=== PATIENT | female | born 1940 | race African-American/Black ===

== ENCOUNTER 2023-01-19 17:05 | Inpatient (IN) | payer OTHER, MEDICAID ==
[~2023-01-19] VITALS: Ht 162.6 cm; Wt 68.0 kg
[~2023-01-19 17:05] MED LIST: DIAZ2TAB3 MT; HYDR-4001 MT; LOSA50TA41 PO; OMEP10CA5 MT
[2023-01-19 22:58] LABS: CLARITY URINE CLEAR (CLEAR); COLOR URINE YELLOW (YELLOW); KETONES URINE NEGATIVE (NEGATIVE); LEUKOCYTE ESTERASE URINE NEGATIVE (NEGATIVE); NITRITE URINE NEGATIVE (NEGATIVE); OCCULT BLOOD URINE NEGATIVE (NEGATIVE); PROTEIN URINE NEGATIVE (NEGATIVE); SPECIFIC GRAVITY URINE 1.011 (1.005-1.030); UROBILINOGEN URINE 0.2 E.U./dL (0.2-1.0)
[2023-01-19 23:46] LABS: BASOPHILS % 0.7 % (0.0-2.0); EOSINOPHILS % 0.7 % (0.0-5.0); HEMATOCRIT. 35.4 % (36.0-48.0); HEMOGLOBIN. 12.1 g/dL (12.0-16.0); LYMPHOCYTES % 29.6 % (20.0-50.0); MEAN CORPUSCULAR HEMOGLOBIN 29.5 pg (28.0-32.0); MEAN CORPUSCULAR VOLUME 85.8 fL (81.0-99.0); MEAN PLATELET VOLUME 7.3 fl (7.4-10.4); MONOCYTES % 14.9 % (2.0-8.0); NEUTROPHILS % 54.1 % (40.0-76.0); PLATELET 243 x1000/uL (130-400); RED BLOOD CELL COUNT 4.12 mill/uL (4.2-5.4); RED CELL DISTRIBUTION WIDTH 13.3 % (11.6-14.6)
[2023-01-20 00:09] LABS: CHLORIDE 94 mEq/L (98-107)
[2023-01-20] MEDS ORDERED: ACETAMINOPHEN 325MG TABLET PO ONE (00:30)
[2023-01-20] MEDS ORDERED: MORPHINE SULFATE 4 MG/ML CPJ (NOT FOR IM USE) IV ONE (00:45)
[2023-01-20] MEDS ORDERED: CLONIDINE 0.1MG TABLET PO PRN (02:30)
[2023-01-20] MEDS ORDERED: SENNOSIDES/DOCUSATE SOD 8.6/50MG TABLET PO PRN (02:30)
[2023-01-20] MEDS ORDERED: NA PHOS,M-B/NA PHOS,DI-BA ENEMA 118ML PR PRN (02:30)
[2023-01-20] MEDS ORDERED: ACETAMINOPHEN 325MG TABLET PO PRN ×2 (02:30)
[2023-01-20] MEDS ORDERED: BISACODYL 5MG TABLET PO NR (02:30)
[2023-01-20] MEDS ORDERED: IPRATROPIUM/ALBUTEROL 0.5-3(2.5)MG/3ML NEB NEB PRN (02:30)
[2023-01-20 05:03] LABS: BASOPHILS % 0.5 % (0.0-2.0); EOSINOPHILS % 0.8 % (0.0-5.0); HEMATOCRIT. 34.2 % (36.0-48.0); HEMOGLOBIN. 11.7 g/dL (12.0-16.0); LYMPHOCYTES % 23.3 % (20.0-50.0); MEAN CORPUSCULAR HEMOGLOBIN 29.6 pg (28.0-32.0); MEAN CORPUSCULAR VOLUME 86.4 fL (81.0-99.0); MEAN PLATELET VOLUME 7.4 fl (7.4-10.4); MONOCYTES % 14.7 % (2.0-8.0); NEUTROPHILS % 60.7 % (40.0-76.0); PLATELET 220 x1000/uL (130-400); RED BLOOD CELL COUNT 3.96 mill/uL (4.2-5.4); RED CELL DISTRIBUTION WIDTH 13.4 % (11.6-14.6)
[2023-01-20 05:25] LABS: CHLORIDE 97 mEq/L (98-107)
[2023-01-20 05:44] LABS: HDL CHOLESTEROL 85 mg/dL (40-59); LDL CHOLESTEROL 56 mg/dL (5-100); T4 FREE 1.46 ng/dL (0.76-1.46)
[2023-01-20] MEDS ORDERED: KCL 20MEQ/100ML PREMIX 100 ML IV NR (05:45)
[2023-01-20 06:08] LABS: TOTAL IRON BINDING CAPACITY 343 ug/dL (250-450)
[2023-01-20] MEDS ORDERED: MORPHINE SULFATE 4 MG/ML CPJ (NOT FOR IM USE) IV NR (08:00)
[2023-01-20] MEDS: BLOOD SUGAR DIAGNOSTIC STRIP TEST SCH ×3 (09:00→20:53)
[2023-01-20] MEDS: ENOXAPARIN 30MG/0.3ML SYR SUBCUT SCH (09:00)
[2023-01-20] MEDS: LOSARTAN POTASSIUM 50 MG TABLET PO SCH (09:00)
[2023-01-20] MEDS: PANTOPRAZOLE SODIUM 40 MG/VIAL IV SCH (09:00)
[2023-01-20 09:42] LABS: VITAMIN B12 SERUM 551 pg/mL (211-911)
[2023-01-20 10:26] LABS: *AMPHETAMINES SCREEN URINE NEGATIVE (NEGATIVE); *BARBITURATES SCREEN URINE NEGATIVE (NEGATIVE); *BENZODIAZEPINES SCREEN URINE PRESUMTIVE POSITIVE (NEGATIVE); *COCAINE SCREEN URINE NEGATIVE (NEGATIVE); CANNABINOID URINE SCREEN NEGATIVE (NEGATIVE); METHADONE URINE SCREEN NEGATIVE (NEGATIVE); OPIATES URINE SCREEN PRESUMTIVE POSITIVE (NEGATIVE); PHENCYCLIDINE URINE SCREEN NEGATIVE (NEGATIVE)
[2023-01-20 11:53] LABS: FERRITIN 50 ng/mL (10-291)
[2023-01-20] MEDS: SENNOSIDES/DOCUSATE SOD 8.6/50MG TABLET PO SCH ×2 (15:28→17:00)
[2023-01-20] MEDS: HYDROCODONE/ACETAMINOPHEN 5/325MG TABLET PO PRN (15:36)
[2023-01-20 15:37] VITALS: BP 140/70
[2023-01-20] MEDS ORDERED: IPRATROPIUM BROMIDE (0.02%) 0.5MG/2.5ML NEB HHN PRN (15:45)
[2023-01-20] MEDS ORDERED: SORBITOL 70% SOLN 30ML PO NR (15:45)
[2023-01-20] MEDS ORDERED: ALBUTEROL (0.083%) 2.5MG/3ML NEB HHN PRN (15:45)
[2023-01-20] MEDS ORDERED: NALOXONE HCL 0.4MG/ML VIAL IV PRN (19:15)
[2023-01-20 20:00] VITALS: BP 123/57
[2023-01-21] VITALS: BP 149/65
[2023-01-21] MEDS: HYDROCODONE/ACETAMINOPHEN 5/325MG TABLET PO PRN ×3 (02:18→21:35)
[2023-01-21 04:00] VITALS: BP 137/58
[2023-01-21 07:15] LABS: HEMATOCRIT. 33.1 % (36.0-48.0); HEMOGLOBIN. 11.6 g/dL (12.0-16.0); MEAN CORPUSCULAR HEMOGLOBIN 30.5 pg (28.0-32.0); MEAN CORPUSCULAR VOLUME 87.2 fL (81.0-99.0); MEAN PLATELET VOLUME 7.7 fl (7.4-10.4); PLATELET 244 x1000/uL (130-400); RED CELL DISTRIBUTION WIDTH 13.4 % (11.6-14.6)
[2023-01-21] MEDS: BLOOD SUGAR DIAGNOSTIC STRIP TEST SCH ×4 (07:20→21:36)
[2023-01-21 07:55] LABS: CHLORIDE 100 mEq/L (98-107)
[2023-01-21 07:57] LABS: AMYLASE 116 IU/L (25-115)
[2023-01-21 08:00] VITALS: BP 117/64
[2023-01-21] MEDS: ENOXAPARIN 30MG/0.3ML SYR SUBCUT SCH (09:00)
[2023-01-21] MEDS: LOSARTAN POTASSIUM 50 MG TABLET PO SCH (10:36)
[2023-01-21] MEDS: SENNOSIDES/DOCUSATE SOD 8.6/50MG TABLET PO SCH ×2 (10:36→18:45)
[2023-01-21] MEDS: PANTOPRAZOLE SODIUM 40 MG/VIAL IV SCH (11:23)
[2023-01-21 12:00] VITALS: BP 156/81
[2023-01-21 13:46] LABS: PLATELET ESTIMATE NORMAL
[2023-01-21 16:00] VITALS: BP 157/91
[2023-01-21 20:00] VITALS: BP 102/60
[2023-01-21] MEDS: DEXTROSE 50% WATER 50ML SYRINGE IV PRN (21:55)
[2023-01-22] VITALS: BP 139/62
[2023-01-22] MEDS: HYDROCODONE/ACETAMINOPHEN 5/325MG TABLET PO PRN ×2 (03:47→14:10)
[2023-01-22 04:00] VITALS: BP 149/66
[2023-01-22] MEDS: DEXTROSE 50% WATER 50ML SYRINGE IV PRN ×3 (05:49→12:01)
[2023-01-22] MEDS: BLOOD SUGAR DIAGNOSTIC STRIP TEST SCH ×2 (07:20→12:20)
[2023-01-22 08:00] VITALS: BP 151/68
[2023-01-22] MEDS: LOSARTAN POTASSIUM 50 MG TABLET PO SCH (08:38)
[2023-01-22] MEDS: SENNOSIDES/DOCUSATE SOD 8.6/50MG TABLET PO SCH (08:40)
[2023-01-22] MEDS: ENOXAPARIN 30MG/0.3ML SYR SUBCUT SCH (08:41)
[2023-01-22 12:00] VITALS: BP 132/78
[2023-01-22 16:00] VITALS: BP 149/71
[2023-01-22 20:30] LABS: FOLIC ACID (FOLATE) SERUM > 20.00 ng/mL (>5.38)
== END 2023-01-22 17:03 | disposition home or self-care (01) | DRG 392 ==
LOC: ER 17:05 → 6EST 01-20 01:40 → ENRESERV 01-20 10:49
PROVIDERS: ADMIT Internal Medicine; ATTEND Internal Medicine
DX: K59.00 Constipation, unspecified (principal); K40.90 Unilateral inguinal hernia, without obstruction or gangrene, not specified as recurrent; D64.9 Anemia, unspecified; D72.819 Decreased white blood cell count, unspecified; I11.9 Hypertensive heart disease without heart failure; E16.2 Hypoglycemia, unspecified; G89.29 Other chronic pain; M19.90 Unspecified osteoarthritis, unspecified site; K44.9 Diaphragmatic hernia without obstruction or gangrene; N99.3 Prolapse of vaginal vault after hysterectomy; Z96.643 Presence of artificial hip joint, bilateral; Z79.899 Other long term (current) drug therapy; Z90.49 Acquired absence of other specified parts of digestive tract
CPT/HCPCS: 36415; 74176; 76700; 80048; 80053; 80061; 80305; 81003; 82150; 82378; 82607; 82728; 82746; 82962; 83036; 83540; 83550; 83615; 83880; 84439; 84443; 84484; 85025; 86301; 97162; 97166; 99285; C9113; J1650; J2270; J3480

== ENCOUNTER 2023-05-01 11:11 | Emergency (ER) | payer OTHER, MEDICAID ==
[~2023-05-01] VITALS: Ht 165.1 cm; Wt 55.0 kg
[~2023-05-01 11:11] MED LIST changes: +SULF1TAB44 PO
[2023-05-01 11:12] VITALS: O2SAT 100
[2023-05-01 12:05] LABS: EOSINOPHILS % 1.4 % (0.0-5.0); HEMATOCRIT. 31.6 % (36.0-48.0); HEMOGLOBIN. 10.8 g/dL (12.0-16.0); LYMPHOCYTES % 18.5 % (20.0-50.0); MEAN CORPUSCULAR HEMOGLOBIN 30.2 pg (28.0-32.0); MEAN CORPUSCULAR VOLUME 88.7 fL (81.0-99.0); MONOCYTES % 6.7 % (2.0-8.0); NEUTROPHILS % 72.4 % (40.0-76.0); PLATELET 333 x1000/uL (130-400); RED BLOOD CELL COUNT 3.56 mill/uL (4.2-5.4); RED CELL DISTRIBUTION WIDTH 13.2 % (11.6-14.6)
[2023-05-01 12:16] LABS: CHLORIDE 93 mEq/L (98-107)
[2023-05-01 15:10] VITALS: BP 128/60; PULSE 18; RESP 12
[2023-05-01] MEDS ORDERED: ACETAMINOPHEN 325MG TABLET PO ONE (15:15)
[2023-05-01 15:37] VITALS: TEMP 98.1
== END 2023-05-01 16:08 | disposition home or self-care (01) ==
LOC: ER 11:11
DX: I83.009 Varicose veins of unspecified lower extremity with ulcer of unspecified site (principal); E87.6 Hypokalemia
CPT/HCPCS: 36415; 80053; 83605; 85025; 99283

== ENCOUNTER 2023-07-12 19:41 | Emergency (ER) | payer OTHER, MEDICAID ==
[~2023-07-12] VITALS: Ht 160 cm; Wt 50.0 kg
[2023-07-12 19:43] VITALS: O2SAT 100
[2023-07-12 20:06] VITALS: TEMP 98.4
[2023-07-12 20:57] LABS: BASOPHILS % 0.8 % (0.0-2.0); EOSINOPHILS % 5.2 % (0.0-5.0); HEMATOCRIT. 31.3 % (36.0-48.0); HEMOGLOBIN. 10.2 g/dL (12.0-16.0); LYMPHOCYTES % 33.6 % (20.0-50.0); MEAN CORPUSCULAR HEMOGLOBIN 28.8 pg (28.0-32.0); MEAN CORPUSCULAR HGB CONC 32.6 g/dL (31.0-37.0); MEAN CORPUSCULAR VOLUME 88.2 fL (81.0-99.0); MEAN PLATELET VOLUME 7.1 fl (7.4-10.4); MONOCYTES % 15.8 % (2.0-8.0); NEUTROPHILS % 44.6 % (40.0-76.0); PLATELET 217 x1000/uL (130-400); RED BLOOD CELL COUNT 3.55 mill/uL (4.2-5.4); RED CELL DISTRIBUTION WIDTH 13.2 % (11.6-14.6); WHITE BLOOD COUNT 2.9 x1000/uL (4.5-11.0)
[2023-07-12] MEDS ORDERED: MORPHINE SULFATE 4 MG/ML CPJ (NOT FOR IM USE) IV NR (20:57)
[2023-07-12] MEDS ORDERED: KETOROLAC 30MG/ML VIAL IV NR (20:57)
[2023-07-12 20:58] LABS: DIFFERENTIAL COMMENT 1
[2023-07-12 21:16] LABS: CHLORIDE 98 mEq/L (98-107); INDEX HEMOLYSI 1 (1-3); INDEX ICTERIC 1 (1-4); INDEX LIPEMIC 1 (1-3); SODIUM 130 mEq/L (136-145)
[2023-07-12 21:30] LABS: ALANINE AMINOTRANSFERASE 14 IU/L (13-61); ALBUMIN 3.4 g/dL (3.4-5.0); ASPARTATE AMINOTRANSFERASE 19 IU/L (15-37); BILIRUBIN TOTAL 0.4 mg/dL (0.1-1.0); CALCIUM 8.6 mg/dL (8.5-10.1); CARBON DIOXIDE 26 mEq/L (21-32); CREATININE 0.7 mg/dL (0.6-1.3); GLUCOSE 85 mg/dL (70-105); PROTEIN TOTAL 7.6 g/dL (6.0-8.3); TROPONIN I HIGH SENSITIVITY 7 ng/L (<54); UREA NITROGEN BLOOD 12 mg/dL (7-21)
[2023-07-12] MEDS ORDERED: POTASSIUM CHLORIDE 20MEQ TABLET SR PO NR (21:45)
[2023-07-12] MEDS ORDERED: LACTULOSE 20G/30ML UDC PO NR (21:45)
[2023-07-12 21:47] LABS: CLARITY URINE CLEAR (CLEAR); COLOR URINE YELLOW (YELLOW); GLUCOSE URINE NEGATIVE (NEGATIVE); KETONES URINE NEGATIVE (NEGATIVE); LEUKOCYTE ESTERASE URINE 1+ (NEGATIVE); NITRITE URINE NEGATIVE (NEGATIVE); OCCULT BLOOD URINE NEGATIVE (NEGATIVE); PROTEIN URINE NEGATIVE (NEGATIVE); SPECIFIC GRAVITY URINE 1.011 (1.005-1.030); UROBILINOGEN URINE 0.2 E.U./dL (0.2-1.0)
[2023-07-12 21:50] LABS: RBC URINE 0-2 /hpf (0-2); SQUAMOUS EPITHELIAL CELL URINE 1+ /lpf (RARE/1+); YEAST URINE NONE SEEN
[2023-07-12] MEDS ORDERED: POLY17PO3 MT (21:58)
[2023-07-12] MEDS ORDERED: CEPH500C2 MT (21:58)
[2023-07-12] MEDS ORDERED: CEFTRIAXONE 1GM PREMIX 50 ML IV NR (22:00)
[2023-07-12 22:05] LABS: BACTERIA URINE TRACE; WBC URINE 0-2 /hpf (0-2)
[2023-07-12 22:11] LABS: PROTHROMBIN TIME 10.3 sec (9.6-11.0)
[2023-07-12 22:25] LABS: TROPONIN I HIGH SENSITIVITY 8 ng/L (<54)
[2023-07-12] MEDS ORDERED: POTASSIUM CHLORIDE INJ 40 MEQ in DEXT 5% WATER 250 ML IV NR (22:30)
[2023-07-13] MEDS ORDERED: TOPUD MT (05:26)
[2023-07-13 09:31] VITALS: BP 136/72; PULSE 78; RESP 16
== END 2023-07-13 09:33 | disposition home or self-care (01) ==
LOC: ER 19:41 → CANBEDREQ 07-13 22:13
DX: R10.9 Unspecified abdominal pain (principal); I10 Essential (primary) hypertension
CPT/HCPCS: 99285; 74176; 96365; 96375; 80053; 81003; 83690; 85025; 85610; 84484; 36415; 93005; 96367; J0696; J1885; J3480; J2270; J7060; 96376

== ENCOUNTER 2023-09-16 04:06 | Emergency (ER) | payer OTHER, MEDICAID ==
[~2023-09-16] VITALS: Ht 165.1 cm; Wt 63.0 kg
[~2023-09-16 04:06] MED LIST changes: +CEPH500C2 MT; +POLY17PO3 MT; +TOPUD MT
[2023-09-16 04:10] VITALS: O2SAT 98
[2023-09-16 04:53] LABS: BASOPHILS % 0.4 % (0.0-2.0); HEMATOCRIT. 30.7 % (36.0-48.0); HEMOGLOBIN. 10.5 g/dL (12.0-16.0); LYMPHOCYTES % 12.7 % (20.0-50.0); MEAN CORPUSCULAR HEMOGLOBIN 29.4 pg (28.0-32.0); MEAN CORPUSCULAR HGB CONC 34.3 g/dL (31.0-37.0); MEAN CORPUSCULAR VOLUME 85.6 fL (81.0-99.0); MEAN PLATELET VOLUME 7.5 fl (7.4-10.4); MONOCYTES % 5.9 % (2.0-8.0); PLATELET 275 x1000/uL (130-400); RED BLOOD CELL COUNT 3.58 mill/uL (4.2-5.4); RED CELL DISTRIBUTION WIDTH 14.9 % (11.6-14.6); WHITE BLOOD COUNT 5.2 x1000/uL (4.5-11.0)
[2023-09-16 04:59] LABS: CHLORIDE 91 mEq/L (98-107); INDEX HEMOLYSI 1 (1-3); INDEX ICTERIC 1 (1-4); INDEX LIPEMIC 1 (1-3); SODIUM 127 mEq/L (136-145)
[2023-09-16 05:04] LABS: INR 0.9; PROTHROMBIN TIME 10.2 sec (9.6-11.0)
[2023-09-16 05:14] LABS: ALANINE AMINOTRANSFERASE 28 IU/L (13-61); ALBUMIN 3.8 g/dL (3.4-5.0); ASPARTATE AMINOTRANSFERASE 31 IU/L (15-37); BILIRUBIN TOTAL 0.4 mg/dL (0.1-1.0); CALCIUM 9.1 mg/dL (8.5-10.1); CARBON DIOXIDE 28 mEq/L (21-32); CREATININE 0.6 mg/dL (0.6-1.3); GLUCOSE 90 mg/dL (70-105); PROTEIN TOTAL 8.4 g/dL (6.0-8.3); UREA NITROGEN BLOOD 14 mg/dL (7-21)
[2023-09-16] MEDS ORDERED: ONDANSETRON HCL 4MG/2ML INJ IV STA (05:15)
[2023-09-16] MEDS ORDERED: MORPHINE SULFATE 4 MG/ML CPJ (NOT FOR IM USE) IV STA (05:15)
[2023-09-16 06:13] LABS: CLARITY URINE CLOUDY (CLEAR); COLOR URINE YELLOW (YELLOW); GLUCOSE URINE NEGATIVE (NEGATIVE); KETONES URINE NEGATIVE (NEGATIVE); LEUKOCYTE ESTERASE URINE NEGATIVE (NEGATIVE); NITRITE URINE NEGATIVE (NEGATIVE); OCCULT BLOOD URINE NEGATIVE (NEGATIVE); PROTEIN URINE NEGATIVE (NEGATIVE); SPECIFIC GRAVITY URINE 1.004 (1.005-1.030); UROBILINOGEN URINE 0.2 E.U./dL (0.2-1.0)
[2023-09-16 06:15] LABS: BACTERIA URINE NONE SEEN; YEAST URINE NONE SEEN
[2023-09-16 07:07] LABS: RBC URINE 0-2 /hpf (0-2); SQUAMOUS EPITHELIAL CELL URINE FEW /lpf (RARE/1+); WBC URINE 0-2 /hpf (0-2)
[2023-09-16] MEDS ORDERED: IOHEXOL-300 100 ML BOTTLE ONE (07:28)
[2023-09-16 15:18] VITALS: BP 129/63; PULSE 94; RESP 12; TEMP 90.1
== END 2023-09-16 15:30 | disposition short-term general hospital (02) ==
LOC: ER 04:06
DX: R10.9 Unspecified abdominal pain (principal); I10 Essential (primary) hypertension; Z79.899 Other long term (current) drug therapy
CPT/HCPCS: 99285; 74177; 96374; 96375; 80053; 81003; 83880; 83605; 83690; 85025; 85610; 86850; 86900; 86901; 36415; Q9967; J2405; J2270

== ENCOUNTER 2023-12-09 04:57 | Emergency (ER) | payer OTHER, MEDICAID ==
[~2023-12-09] VITALS: Ht 162.6 cm; Wt 64.0 kg
[2023-12-09 05:01] VITALS: TEMP 98.3; O2SAT 99
[2023-12-09] MEDS ORDERED: KETOROLAC 15MG/ML VIAL IV ONE (05:15)
[2023-12-09] MEDS ORDERED: ONDANSETRON HCL 4MG/2ML INJ IV ONE (05:15)
[2023-12-09] MEDS ORDERED: FAMOTIDINE 20MG/2ML VIAL IV ONE (05:15)
[2023-12-09] MEDS: SODIUM CHLORIDE 0.9% 1,000 ML IV ONE ×2 (05:15→09:00)
[2023-12-09 05:57] LABS: BASOPHILS % 0.5 % (0.0-2.0); EOSINOPHILS % 6.5 % (0.0-5.0); HEMATOCRIT. 25.3 % (36.0-48.0); HEMOGLOBIN. 8.6 g/dL (12.0-16.0); LYMPHOCYTES % 11.8 % (20.0-50.0); MEAN CORPUSCULAR HEMOGLOBIN 30.1 pg (28.0-32.0); MEAN CORPUSCULAR HGB CONC 34.1 g/dL (31.0-37.0); MEAN CORPUSCULAR VOLUME 88.2 fL (81.0-99.0); MONOCYTES % 7.3 % (2.0-8.0); NEUTROPHILS % 73.9 % (40.0-76.0); PLATELET 275 x1000/uL (130-400); RED BLOOD CELL COUNT 2.87 mill/uL (4.2-5.4); WHITE BLOOD COUNT 3.6 x1000/uL (4.5-11.0)
[2023-12-09 06:10] LABS: ALANINE AMINOTRANSFERASE 14 IU/L (10-49); ASPARTATE AMINOTRANSFERASE 28 IU/L (<34); BILIRUBIN TOTAL 0.3 mg/dL (0.1-1.0); CALCIUM 8.6 mg/dL (8.7-10.4); CARBON DIOXIDE 26 mEq/L (21-32); CHLORIDE 93 mEq/L (98-107); CREATININE 0.8 mg/dL (0.6-1.0); GLUCOSE 93 mg/dL (70-105); POTASSIUM 3.4 mEq/L (3.5-5.1); PROTEIN TOTAL 7.1 g/dL (6.0-8.3); SODIUM 123 mEq/L (136-145); UREA NITROGEN BLOOD 15 mg/dL (9-23)
[2023-12-09 06:33] LABS: PROTHROMBIN TIME 10.4 sec (9.6-11.0)
[2023-12-09 08:36] LABS: CLARITY URINE CLEAR (CLEAR); COLOR URINE YELLOW (YELLOW); GLUCOSE URINE NEGATIVE (NEGATIVE); KETONES URINE NEGATIVE (NEGATIVE); LEUKOCYTE ESTERASE URINE 1+ (NEGATIVE); NITRITE URINE NEGATIVE (NEGATIVE); OCCULT BLOOD URINE NEGATIVE (NEGATIVE); PROTEIN URINE NEGATIVE (NEGATIVE); SPECIFIC GRAVITY URINE 1.004 (1.005-1.030); UROBILINOGEN URINE 0.2 E.U./dL (0.2-1.0)
[2023-12-09] MEDS: KETOROLAC 15MG/ML VIAL IV NR (08:39)
[2023-12-09] MEDS: FAMOTIDINE 20MG/2ML VIAL IV NR (08:39)
[2023-12-09] MEDS: ONDANSETRON HCL 4MG/2ML INJ IV NR (08:40)
[2023-12-09 09:23] LABS: SQUAMOUS EPITHELIAL CELL URINE 1+ /lpf (RARE/1+)
[2023-12-09 09:24] LABS: BACTERIA URINE TRACE; RBC URINE 0-2 /hpf (0-2)
[2023-12-09 09:25] LABS: WBC URINE 0-2 /hpf (0-2)
[2023-12-09] MEDS: IOHEXOL-300 100 ML BOTTLE ONE (11:37)
[2023-12-09 13:05] VITALS: BP 121/74; PULSE 8; RESP 15
[2023-12-10] MEDS ORDERED: IOHEXOL-300 100 ML BOTTLE ONE (11:49)
== END 2023-12-09 13:38 | disposition short-term general hospital (02) ==
LOC: ER 05:07 → CANBEDREQ 11:22 → ER 13:38
DX: E87.1 Hypo-osmolality and hyponatremia (principal); R10.32 Left lower quadrant pain; I10 Essential (primary) hypertension; Z79.899 Other long term (current) drug therapy
CPT/HCPCS: 99285; 74177; 96361; 96374; 96375; 80053; 81003; 83605; 83690; 85025; 85610; 36415; Q9967; J3490; J1885; J2405; J7030

== ENCOUNTER 2024-02-28 10:03 | Emergency (ER) | payer OTHER, MEDICAID ==
[~2024-02-28] VITALS: Ht 167.6 cm; Wt 59.0 kg
[2024-02-28 10:07] VITALS: O2SAT 100
[2024-02-28 11:18] LABS: CLARITY URINE CLOUDY (CLEAR); COLOR URINE YELLOW (YELLOW); GLUCOSE URINE NEGATIVE (NEGATIVE); KETONES URINE NEGATIVE (NEGATIVE); LEUKOCYTE ESTERASE URINE 3+ (NEGATIVE); NITRITE URINE POSITIVE (NEGATIVE); OCCULT BLOOD URINE TRACE (NEGATIVE); PROTEIN URINE NEGATIVE (NEGATIVE); SPECIFIC GRAVITY URINE 1.006 (1.005-1.030); UROBILINOGEN URINE 0.2 E.U./dL (0.2-1.0)
[2024-02-28 11:30] LABS: EOSINOPHILS % 2.7 % (0.0-5.0); HEMATOCRIT. 28.3 % (36.0-48.0); LYMPHOCYTES % 18.7 % (20.0-50.0); MEAN CORPUSCULAR HEMOGLOBIN 30.9 pg (28.0-32.0); MEAN CORPUSCULAR HGB CONC 35.4 g/dL (31.0-37.0); MEAN CORPUSCULAR VOLUME 87.3 fL (81.0-99.0); MEAN PLATELET VOLUME 7.3 fl (7.4-10.4); MONOCYTES % 9.9 % (2.0-8.0); NEUTROPHILS % 67.7 % (40.0-76.0); PLATELET 259 x1000/uL (130-400); RED BLOOD CELL COUNT 3.24 mill/uL (4.2-5.4); WHITE BLOOD COUNT 2.9 x1000/uL (4.5-11.0)
[2024-02-28 11:32] LABS: CARBON DIOXIDE 27 mEq/L (21-32); CHLORIDE 89 mEq/L (98-107); POTASSIUM 3.2 mEq/L (3.5-5.1); SODIUM 122 mEq/L (136-145)
[2024-02-28 11:33] LABS: CALCIUM 8.4 mg/dL (8.7-10.4)
[2024-02-28 11:38] LABS: CREATININE 0.7 mg/dL (0.6-1.0); GLUCOSE 93 mg/dL (70-105); INR 0.9; PROTHROMBIN TIME 10.2 sec (9.6-11.0); UREA NITROGEN BLOOD 11 mg/dL (9-23)
[2024-02-28 11:39] LABS: ALANINE AMINOTRANSFERASE 12 IU/L (10-49); ASPARTATE AMINOTRANSFERASE 33 IU/L (<34)
[2024-02-28 11:40] LABS: ALBUMIN 4.1 g/dL (3.2-4.8); BILIRUBIN TOTAL 0.4 mg/dL (0.1-1.0); PROTEIN TOTAL 7.1 g/dL (6.0-8.3)
[2024-02-28 11:42] LABS: SQUAMOUS EPITHELIAL CELL URINE RARE /lpf (RARE/1+)
[2024-02-28 11:43] LABS: BACTERIA URINE 2+
[2024-02-28 11:44] LABS: RBC URINE 0-2 /hpf (0-2); WBC URINE 50-100 /hpf (0-2)
[2024-02-28] MEDS ORDERED: ACETAMINOPHEN 325MG TABLET PO ONE (12:00)
[2024-02-28] MEDS ORDERED: CEPHALEXIN 250MG CAPSULE PO ONE (12:00)
[2024-02-28] MEDS ORDERED: CEPH500T MT (12:07)
[2024-02-28 13:00] VITALS: TEMP 98.9
[2024-02-28 14:03] VITALS: BP 124/69; PULSE 67; RESP 16
== END 2024-02-28 14:00 | disposition home or self-care (01) ==
LOC: ER 10:03
DX: R10.30 Lower abdominal pain, unspecified (principal); R30.9 Painful micturition, unspecified; I10 Essential (primary) hypertension; Z79.899 Other long term (current) drug therapy
CPT/HCPCS: 36415; 80053; 81003; 85025; 87077; 87186; 99285

== ENCOUNTER 2025-06-22 11:14 | Inpatient (IN) | payer MEDICARE, MEDICAID ==
[~2025-06-22] VITALS: Ht 160 cm; Wt 51.7 kg
[~2025-06-22 11:14] MED LIST changes: +AMLO5TAB88 PO; +CEPH500T MT; +PROT40 PO
[2025-06-22 11:15] VITALS: O2SAT 99
[2025-06-22 12:28] LABS: BASOPHILS % 0.6 % (0.0-2.0); EOSINOPHILS % 0.1 % (0.0-5.0); HEMATOCRIT. 30.3 % (36.0-48.0); HEMOGLOBIN. 10.7 g/dL (12.0-16.0); LYMPHOCYTES % 19.5 % (20.0-50.0); MEAN PLATELET VOLUME 7.3 fl (7.4-10.4); MONOCYTES % 11.9 % (2.0-8.0); NEUTROPHILS % 67.9 % (40.0-76.0); PLATELET 216 x1000/uL (130-400); RED BLOOD CELL COUNT 3.55 mill/uL (4.2-5.4); RED CELL DISTRIBUTION WIDTH 13.4 % (11.6-14.6)
[2025-06-22] MEDS: SODIUM CHLORIDE 0.9% 1,000 ML IV ONE (12:31)
[2025-06-22] MEDS: ONDANSETRON HCL 4MG/2ML INJ IV ONE (12:31)
[2025-06-22] MEDS: MORPHINE SULFATE 4 MG/ML INJ (FOR IV/IM USE) IV ONE (12:31)
[2025-06-22 12:44] LABS: CREATININE 0.7 mg/dL (0.6-1.0); UREA NITROGEN BLOOD 9 mg/dL (9-23)
[2025-06-22 12:46] LABS: ASPARTATE AMINOTRANSFERASE 22 IU/L (<34); BILIRUBIN DIRECT 0.2 mg/dL (<=3.0); BILIRUBIN TOTAL 0.4 mg/dL (0.1-1.0); PROTEIN TOTAL 8.0 g/dL (6.0-8.3)
[2025-06-22] MEDS: KCL 20MEQ/100ML PREMIX 100 ML IV SCH (13:01)
[2025-06-22 13:23] LABS: CLARITY URINE CLEAR (CLEAR); COLOR URINE YELLOW (YELLOW); GLUCOSE URINE NEGATIVE (NEGATIVE); KETONES URINE NEGATIVE (NEGATIVE); LEUKOCYTE ESTERASE URINE 1+ (NEGATIVE); NITRITE URINE NEGATIVE (NEGATIVE); OCCULT BLOOD URINE NEGATIVE (NEGATIVE); PH URINE 6.5 (4.5-8.0); PROTEIN URINE NEGATIVE (NEGATIVE); SPECIFIC GRAVITY URINE 1.009 (1.005-1.030); UROBILINOGEN URINE 0.2 E.U./dL (0.2-1.0)
[2025-06-22 13:38] LABS: SQUAMOUS EPITHELIAL CELL URINE 1+ /lpf (RARE/1+)
[2025-06-22 13:39] LABS: WBC URINE 50-100 /hpf (0-2)
[2025-06-22 13:40] LABS: BACTERIA URINE 4+; RBC URINE 0-2 /hpf (0-2)
[2025-06-22] MEDS ORDERED: GUAIFENESIN 200MG/10ML SUGAR FREE UDC PO PRN (15:45)
[2025-06-22] MEDS ORDERED: MAGNESIUM/ALUMINUM HYDROXIDE/SIMETHICONE 30ML UDC PO PRN (15:45)
[2025-06-22] MEDS ORDERED: IPRATROPIUM/ALBUTEROL 0.5-3(2.5)MG/3ML NEB HHN PRN (15:45)
[2025-06-22] MEDS ORDERED: ACETAMINOPHEN 325MG TABLET PO PRN (15:45)
[2025-06-22] MEDS ORDERED: ONDANSETRON HCL 4MG/2ML INJ IV PRN (15:45)
[2025-06-22 16:00] VITALS: BP 116/53; PULSE 88; RESP 16; TEMP 36.6; O2SAT 100
[2025-06-22 17:59] VITALS: BP 116/53; PULSE 88; RESP 17; TEMP 36.6; O2SAT 100
[2025-06-22] MEDS: CEFTRIAXONE 1GM/50ML 50 ML IV SCH (18:13)
[2025-06-22 18:22] VITALS: BP 116/53; PULSE 88; RESP 16; TEMP 36.6404
[2025-06-22 19:39] LABS: PHOSPHORUS 2.7 mg/dL (2.5-4.9)
[2025-06-22] MEDS: ACETAMINOPHEN 325MG TABLET PO PRN (19:40)
[2025-06-22 20:00] VITALS: BP 134/67; PULSE 74; RESP 16; TEMP 36.5; O2SAT 100
[2025-06-22 20:08] LABS: FOLIC ACID (FOLATE) SERUM > 20.00 ng/mL (>5.38)
[2025-06-22] MEDS ORDERED: NALOXONE HCL 0.4MG/ML VIAL IV PRN (20:15)
[2025-06-22 20:37] LABS: VITAMIN B12 SERUM > 2000 pg/mL (211-911)
[2025-06-22] MEDS: FAMOTIDINE 20MG TABLET PO SCH (22:09)
[2025-06-22] MEDS: POTASSIUM CHLORIDE 20MEQ TABLET SR PO SCH (22:10)
[2025-06-22] MEDS: HYDROCODONE/ACETAMINOPHEN 5/325MG TABLET PO PRN (22:31)
[2025-06-22] MEDS: MAGNESIUM 2 G PREMIX 50 ML IV SCH (22:43)
[2025-06-23] VITALS: BP 117/70; PULSE 63; RESP 17; TEMP 36.4; O2SAT 99
[2025-06-23 04:00] VITALS: BP 126/63; PULSE 58; RESP 18; TEMP 36.3; O2SAT 100
[2025-06-23 07:52] LABS: CREATININE 0.6 mg/dL (0.6-1.0); TRIGLYCERIDE 43 mg/dL (0-150); UREA NITROGEN BLOOD 9 mg/dL (9-23)
[2025-06-23 07:53] LABS: LDL CHOLESTEROL 55 mg/dL (5-100)
[2025-06-23 07:54] LABS: HEMATOCRIT. 28.2 % (36.0-48.0); HEMOGLOBIN. 9.9 g/dL (12.0-16.0); MEAN PLATELET VOLUME 7.8 fl (7.4-10.4); PLATELET 200 x1000/uL (130-400); RED BLOOD CELL COUNT 3.31 mill/uL (4.2-5.4); RED CELL DISTRIBUTION WIDTH 13.6 % (11.6-14.6); T4 FREE 1.46 ng/dL (0.89-1.76)
[2025-06-23 08:00] VITALS: BP 143/58; PULSE 67; RESP 18; TEMP 36.1; O2SAT 100
[2025-06-23] MEDS: POLYETHYLENE GLYCOL 3350 (17GM) 1 DOSE PACK PO SCH (08:31)
[2025-06-23 12:00] VITALS: BP 145/70; PULSE 70; RESP 18; TEMP 37.1; O2SAT 95
[2025-06-23 16:00] VITALS: BP 166/71; PULSE 60; RESP 18; TEMP 36.5; O2SAT 97
[2025-06-23 16:39] LABS: LYMPHOCYTES % MANUAL 33.0 % (20.0-60.0); MONOCYTES % MANUAL 7.0 % (2.0-8.0); NEUTROPHILS % MANUAL 60.0 % (45.0-75.0)
[2025-06-23 16:40] LABS: PLATELET ESTIMATE NORMAL
[2025-06-23] MEDS: LACTULOSE 20G/30ML UDC PO SCH (16:56)
[2025-06-23] MEDS: CLONIDINE 0.1MG TABLET PO PRN (17:34)
[2025-06-23 20:00] VITALS: BP 118/53; PULSE 59; RESP 16; TEMP 35.8; O2SAT 100
[2025-06-23] MEDS: SENNOSIDES/DOCUSATE SOD 8.6/50MG TABLET PO SCH (21:05)
[2025-06-24] VITALS: BP 124/57; PULSE 44; RESP 17; TEMP 36.4; O2SAT 99
[2025-06-24] MEDS: SENNOSIDES 8.6MG TABLET PO PRN (03:27)
[2025-06-24 04:00] VITALS: BP 140/59; PULSE 50; RESP 16; TEMP 36.3; O2SAT 99
[2025-06-24 08:00] VITALS: BP 139/59; PULSE 62; RESP 16; TEMP 36.4; O2SAT 95
[2025-06-24] MEDS: LACTULOSE 20G/30ML UDC PO SCH (11:36)
[2025-06-24 12:00] VITALS: BP 131/57; PULSE 59; RESP 15; TEMP 36.7; O2SAT 96
[2025-06-24 13:16] LABS: BASOPHILS % 1.1 % (0.0-2.0); EOSINOPHILS % 0.9 % (0.0-5.0); HEMATOCRIT. 35.8 % (36.0-48.0); HEMOGLOBIN. 11.9 g/dL (12.0-16.0); LYMPHOCYTES % 21.5 % (20.0-50.0); MEAN PLATELET VOLUME 7.5 fl (7.4-10.4); MONOCYTES % 14.8 % (2.0-8.0); NEUTROPHILS % 61.7 % (40.0-76.0); PLATELET 284 x1000/uL (130-400); RED BLOOD CELL COUNT 4.09 mill/uL (4.2-5.4); RED CELL DISTRIBUTION WIDTH 13.9 % (11.6-14.6)
[2025-06-24 13:41] LABS: CREATININE 0.7 mg/dL (0.6-1.0); UREA NITROGEN BLOOD 14 mg/dL (9-23)
[2025-06-24 13:43] LABS: PHOSPHORUS 3.6 mg/dL (2.5-4.9)
[2025-06-24] MEDS: MAGNESIUM OXIDE 400MG TABLET PO NR (15:03)
[2025-06-24] MEDS: MAGNESIUM 4 G PREMIX 100 ML IV NR (15:21)
[2025-06-24 16:00] VITALS: BP 160/79; PULSE 68; RESP 16; TEMP 36.6; O2SAT 96
[2025-06-24] MEDS ORDERED: MAGN400C MT (16:42)
[2025-06-24] MEDS ORDERED: LACT-390 MT (16:42)
[2025-06-24] MEDS ORDERED: TOPUD PO (16:42)
[2025-06-24] MEDS ORDERED: SODI100047 MT (16:42)
[2025-06-24] MEDS ORDERED: SULF1TAB47 MT (16:42)
[2025-06-24 20:07] VITALS: BP 134/72; PULSE 112; RESP 16; TEMP 98.1
== END 2025-06-24 20:57 | disposition home or self-care (01) | DRG 690 ==
LOC: ER 11:14 → EDBEDREQSVC 13:01 → 5WST 13:18 → EDBEDREQ 14:00 → EDBEDREQTM 14:00 → ENRESERV 15:01 → 5WST 06-24 09:13
PROVIDERS: ADMIT Internal Medicine; ATTEND Internal Medicine
DX: N39.0 Urinary tract infection, site not specified (principal); E87.1 Hypo-osmolality and hyponatremia; K59.09 Other constipation; E87.6 Hypokalemia; D64.9 Anemia, unspecified; I10 Essential (primary) hypertension; E83.42 Hypomagnesemia; K21.9 Gastro-esophageal reflux disease without esophagitis; K66.0 Peritoneal adhesions (postprocedural) (postinfection)
CPT/HCPCS: 36415; 74176; 80048; 80061; 80076; 81003; 82533; 82607; 82728; 82746; 83540; 83550; 83735; 83930; 84100; 84300; 84439; 84443; 85025; 87077; 87186; 93005; 93970; 96361; 96374; 96375; 97166; 99285; J0696; J2270; J2405; J3475; J3480; J7030

== ENCOUNTER 2025-10-23 17:48 | Inpatient (IN) | payer MEDICARE, MEDICAID ==
[~2025-10-23] VITALS: Ht 162.6 cm; Wt 55.3 kg
[~2025-10-23 17:48] MED LIST changes: -CEPH500C2 MT; -CEPH500T MT; -HYDR-4001 MT; +LACT-390 MT; +MAGN400C MT; +SODI100047 MT; -SULF1TAB44 PO; +SULF1TAB47 MT; +TOPUD PO
[2025-10-23 17:58] VITALS: O2SAT 98
[2025-10-23] MEDS ORDERED: FAMOTIDINE 20MG/2ML VIAL IV ONE (18:15)
[2025-10-23] MEDS ORDERED: ONDANSETRON HCL 4MG/2ML INJ IV ONE (18:15)
[2025-10-23] MEDS: SODIUM CHLORIDE 0.9% 1,000 ML IV ONE (20:34)
[2025-10-23] MEDS: ONDANSETRON HCL 4MG/2ML INJ IV SCH (20:34)
[2025-10-23] MEDS: FAMOTIDINE 20MG/2ML VIAL IV SCH (20:34)
[2025-10-23 20:35] LABS: BASOPHILS % 1.5 % (0.0-2.0); EOSINOPHILS % 0.3 % (0.0-5.0); HEMATOCRIT. 29.4 % (36.0-48.0); HEMOGLOBIN. 10.0 g/dL (12.0-16.0); LYMPHOCYTES % 22.4 % (20.0-50.0); MEAN PLATELET VOLUME 7.8 fl (7.4-10.4); MONOCYTES % 10.7 % (2.0-8.0); NEUTROPHILS % 65.1 % (40.0-76.0); PLATELET 203 x1000/uL (130-400); RED BLOOD CELL COUNT 3.50 mill/uL (4.2-5.4); RED CELL DISTRIBUTION WIDTH 15.2 % (11.6-14.6)
[2025-10-23] MEDS: MORPHINE SULFATE 2 MG/ML INJ (NOT FOR IM USE) IV ONE (20:46)
[2025-10-23 20:51] LABS: CREATININE 0.7 mg/dL (0.6-1.0); UREA NITROGEN BLOOD 9 mg/dL (9-23)
[2025-10-23 20:52] LABS: PROTEIN TOTAL 7.8 g/dL (6.0-8.3); TROPONIN I HIGH SENSITIVITY 11 ng/L (3.0-34)
[2025-10-23 20:53] LABS: ASPARTATE AMINOTRANSFERASE 25 IU/L (<34); BILIRUBIN DIRECT 0.1 mg/dL (<=3.0); BILIRUBIN TOTAL 0.4 mg/dL (0.1-1.0)
[2025-10-23 21:13] LABS: CLARITY URINE CLEAR (CLEAR); COLOR URINE YELLOW (YELLOW); GLUCOSE URINE NEGATIVE (NEGATIVE); KETONES URINE NEGATIVE (NEGATIVE); LEUKOCYTE ESTERASE URINE TRACE (NEGATIVE); NITRITE URINE POSITIVE (NEGATIVE); OCCULT BLOOD URINE NEGATIVE (NEGATIVE); PH URINE 7.0 (4.5-8.0); PROTEIN URINE NEGATIVE (NEGATIVE); SPECIFIC GRAVITY URINE 1.010 (1.005-1.030); UROBILINOGEN URINE 0.2 E.U./dL (0.2-1.0)
[2025-10-23] MEDS: CEFTRIAXONE 1GM/50ML 50 ML IV ONE (22:28)
[2025-10-23] MEDS: POTASSIUM CHLORIDE 20MEQ TABLET SR PO ONE (22:28)
[2025-10-23] MEDS ORDERED: ONDANSETRON HCL 4MG/2ML INJ IV PRN (22:45)
[2025-10-23] MEDS ORDERED: DOCUSATE SODIUM 100MG CAPSULE PO PRN (22:45)
[2025-10-23] MEDS ORDERED: IPRATROPIUM/ALBUTEROL 0.5-3(2.5)MG/3ML NEB HHN PRN (22:45)
[2025-10-23] MEDS ORDERED: ACETAMINOPHEN 325MG TABLET PO PRN (22:45)
[2025-10-23] MEDS ORDERED: GUAIFENESIN 200MG/10ML SUGAR FREE UDC PO PRN (22:45)
[2025-10-23 22:53] LABS: PHOSPHORUS 3.6 mg/dL (2.5-4.9)
[2025-10-23 22:57] LABS: FOLIC ACID (FOLATE) SERUM > 20.00 ng/mL (>5.38); VITAMIN B12 SERUM 1071 pg/mL (211-911)
[2025-10-23] MEDS: MAGNESIUM 2 G PREMIX 50 ML IV SCH (23:34)
[2025-10-24] VITALS (7 sets, daily range): BP systolic 115–152; BP diastolic 56–84; PULSE 56–85; RESP 13–19; TEMP 36.3–36.8072; O2SAT 95–100
[2025-10-24 00:01] LABS: BACTERIA URINE 2+; SQUAMOUS EPITHELIAL CELL URINE 2+ /lpf (RARE/1+)
[2025-10-24 00:39] LABS: *AMPHETAMINES SCREEN URINE NEGATIVE (NEGATIVE)
[2025-10-24 00:40] LABS: *BARBITURATES SCREEN URINE NEGATIVE (NEGATIVE); *BENZODIAZEPINES SCREEN URINE NEGATIVE (NEGATIVE); *COCAINE SCREEN URINE NEGATIVE (NEGATIVE); CANNABINOID URINE SCREEN NEGATIVE (NEGATIVE); ECSTASY MDMA SCREEN URINE NEGATIVE (NEGATIVE); METHADONE URINE SCREEN NEGATIVE (NEGATIVE); OPIATES URINE SCREEN PRESUMPTIVE POSITIVE (NEGATIVE); PHENCYCLIDINE URINE SCREEN NEGATIVE (NEGATIVE)
[2025-10-24] MEDS: DEXT 5%/LACTATED RINGERS 1,000 ML IV SCH (01:11)
[2025-10-24] MEDS: KETOROLAC 15MG/ML VIAL IV PRN (01:12)
[2025-10-24] MEDS: LACTULOSE 20G/30ML UDC PO NR (01:14)
[2025-10-24] MEDS: POLYETHYLENE GLYCOL 3350 (17GM) 1 DOSE PACK PO NR (01:14)
[2025-10-24] MEDS: KCL 20MEQ/100ML PREMIX 100 ML IV NR (01:39)
[2025-10-24] MEDS: ACETAMINOPHEN 325MG TABLET PO PRN (05:48)
[2025-10-24 07:34] LABS: BASOPHILS % 0.3 % (0.0-2.0); EOSINOPHILS % 0.5 % (0.0-5.0); HEMATOCRIT. 28.9 % (36.0-48.0); HEMOGLOBIN. 9.7 g/dL (12.0-16.0); LYMPHOCYTES % 13.8 % (20.0-50.0); MEAN PLATELET VOLUME 7.9 fl (7.4-10.4); MONOCYTES % 14.4 % (2.0-8.0); NEUTROPHILS % 71.0 % (40.0-76.0); PLATELET 196 x1000/uL (130-400); RED BLOOD CELL COUNT 3.38 mill/uL (4.2-5.4); RED CELL DISTRIBUTION WIDTH 15.1 % (11.6-14.6)
[2025-10-24 07:40] LABS: CREATININE 0.7 mg/dL (0.6-1.0); PROTEIN TOTAL 7.1 g/dL (6.0-8.3); TRIGLYCERIDE 30 mg/dL (0-150); UREA NITROGEN BLOOD 6 mg/dL (9-23)
[2025-10-24 07:41] LABS: ASPARTATE AMINOTRANSFERASE 23 IU/L (<34); LDL CHOLESTEROL 46 mg/dL (5-100)
[2025-10-24 07:42] LABS: BILIRUBIN DIRECT 0.2 mg/dL (<=3.0); BILIRUBIN TOTAL 0.4 mg/dL (0.1-1.0); PHOSPHORUS 3.4 mg/dL (2.5-4.9)
[2025-10-24 07:46] LABS: T4 FREE 1.67 ng/dL (0.89-1.76)
[2025-10-24] MEDS: MULTIVITAMINS,THER W-MINERALS TABLET PO SCH (08:24)
[2025-10-24] MEDS: ENOXAPARIN 40MG/0.4ML SYR SUBCUT SCH (08:24)
[2025-10-24] MEDS: POLYETHYLENE GLYCOL 3350 (17GM) 1 DOSE PACK PO SCH (08:24)
[2025-10-24] MEDS: LACTULOSE 20G/30ML UDC PO SCH (08:24)
[2025-10-24] MEDS: SODIUM CHLORIDE 1000MG TABLET PO SCH (08:26)
[2025-10-24] MEDS: AMLODIPINE 2.5MG TABLET PO SCH (08:26)
[2025-10-24] MEDS: LOSARTAN 25 MG TABLET PO SCH (08:27)
[2025-10-24] MEDS: FERROUS SULFATE 325MG TABLET PO SCH (08:27)
[2025-10-24] MEDS: PANTOPRAZOLE SODIUM 40 MG/VIAL IV SCH (08:35)
[2025-10-24 17:02] LABS: TROPONIN I HIGH SENSITIVITY 7 ng/L (3.0-34)
[2025-10-24 17:03] LABS: TROPONIN I HIGH SENSITIVITY 6 ng/L (3.0-34)
[2025-10-24] MEDS: MAGNESIUM 2 G PREMIX 50 ML IV SCH (17:53)
[2025-10-24] MEDS ORDERED: CEFTRIAXONE 2GM/50ML 50 ML IV SCH (21:00)
[2025-10-25] VITALS (7 sets, daily range): BP systolic 118–181; BP diastolic 46–86; PULSE 61–90; RESP 14–18; TEMP 36.3–36.7; O2SAT 95–100
[2025-10-25] MEDS: CEFTRIAXONE 2GM/50ML 50 ML IV SCH (01:58)
[2025-10-25] MEDS: MAGNESIUM/ALUMINUM HYDROXIDE/SIMETHICONE 30ML UDC PO PRN (13:29)
[2025-10-25] MEDS: CLONIDINE 0.1MG TABLET PO PRN (16:39)
[2025-10-25 18:29] LABS: HEMATOCRIT. 31.6 % (36.0-48.0); HEMOGLOBIN. 10.5 g/dL (12.0-16.0); MEAN PLATELET VOLUME 8.1 fl (7.4-10.4); PLATELET 186 x1000/uL (130-400); RED BLOOD CELL COUNT 3.66 mill/uL (4.2-5.4); RED CELL DISTRIBUTION WIDTH 15.6 % (11.6-14.6)
[2025-10-25 18:37] LABS: CREATININE 0.6 mg/dL (0.6-1.0); UREA NITROGEN BLOOD 8 mg/dL (9-23)
[2025-10-25 22:05] LABS: BASOPHILS % MANUAL 1.0 % (0.0-2.0); EOSINOPHILS % MANUAL 2.0 % (0.0-5.0); LYMPHOCYTES % MANUAL 30.0 % (20.0-60.0); MONOCYTES % MANUAL 12.0 % (2.0-8.0); NEUTROPHILS % MANUAL 55.0 % (45.0-75.0); PLATELET ESTIMATE NORMAL
[2025-10-26] VITALS: BP 125/72; PULSE 71; RESP 18; TEMP 36.8; O2SAT 100
[2025-10-26 04:00] VITALS: BP 154/55; PULSE 57; RESP 19; TEMP 37.1; O2SAT 100
[2025-10-26 06:57] LABS: HEMATOCRIT. 32.1 % (36.0-48.0); HEMOGLOBIN. 10.8 g/dL (12.0-16.0); MEAN PLATELET VOLUME 8.4 fl (7.4-10.4); PLATELET 193 x1000/uL (130-400); RED BLOOD CELL COUNT 3.75 mill/uL (4.2-5.4); RED CELL DISTRIBUTION WIDTH 15.0 % (11.6-14.6)
[2025-10-26 07:07] LABS: CREATININE 0.6 mg/dL (0.6-1.0); UREA NITROGEN BLOOD 9 mg/dL (9-23)
[2025-10-26 08:00] VITALS: BP 169/61; PULSE 65; RESP 18; TEMP 36.3; O2SAT 98
[2025-10-26 09:45] VITALS: BP 127/80; PULSE 84; RESP 18; TEMP 36.4; O2SAT 98
[2025-10-26 12:00] VITALS: BP 133/55; PULSE 73; RESP 18; TEMP 36.4; O2SAT 98
[2025-10-26] MEDS ORDERED: FERR-63 PO (12:26)
[2025-10-26] MEDS ORDERED: NITR-87 MT (12:26)
[2025-10-26 14:28] LABS: BAND% 3.0 % (1.0-6.0); EOSINOPHILS % MANUAL 3.0 % (0.0-5.0); LYMPHOCYTES % MANUAL 32.0 % (20.0-60.0); MONOCYTES % MANUAL 13.0 % (2.0-8.0); NEUTROPHILS % MANUAL 49.0 % (45.0-75.0)
[2025-10-26 14:29] LABS: PLATELET ESTIMATE NORMAL
[2025-10-26 16:21] VITALS: BP 133/55; PULSE 73; RESP 18; TEMP 97.6
== END 2025-10-26 18:32 | disposition home or self-care (01) | DRG 690 ==
LOC: ER 17:48 → EDBEDREQTM 21:20 → EDBEDREQ 21:20 → 6WST 21:42 → EDBEDREQTM 21:50 → EDBEDREQSVC 21:50 → EDBEDREQ 21:50 → ENRESERV 23:30
PROVIDERS: ADMIT Internal Medicine; ATTEND Internal Medicine
DX: N39.0 Urinary tract infection, site not specified (principal); E87.1 Hypo-osmolality and hyponatremia; D72.819 Decreased white blood cell count, unspecified; B96.89 Other specified bacterial agents as the cause of diseases classified elsewhere; D64.9 Anemia, unspecified; I10 Essential (primary) hypertension; K59.09 Other constipation; E87.6 Hypokalemia; E83.42 Hypomagnesemia; R32 Unspecified urinary incontinence; Z87.440 Personal history of urinary (tract) infections; Z90.49 Acquired absence of other specified parts of digestive tract; Z90.710 Acquired absence of both cervix and uterus; Z96.643 Presence of artificial hip joint, bilateral; K21.9 Gastro-esophageal reflux disease without esophagitis
CPT/HCPCS: 36415; 71045; 74176; 80048; 80061; 80076; 80305; 81003; 82270; 82550; 82607; 82728; 82746; 83540; 83550; 83605; 83735; 83880; 84100; 84145; 84439; 84443; 84484; 85025; 85044; 87077; 87186; 93005; 97162; 99285; A4606; J0696; J1308; J1650; J1885; J2270; J2405; J2470; J3475; J3480; J7030